=== PATIENT | female | born 1940 | race Caucasian/White ===

== ENCOUNTER → 2018-04-26 | Outpatient (CLI) | payer MEDICARE, OTHER ==
[~2018-04-26] MED LIST: REGADENOSON 0.4 MG/5 ML SYRINGE ONE
== END | disposition home or self-care (01) ==
LOC: CFH 08:07
PROVIDERS: ATTEND Internal Medicine Cardiovascular Disease
DX: I25.10 Atherosclerotic heart disease of native coronary artery without angina pectoris (principal); R06.02 Shortness of breath
CPT/HCPCS: 78452; 93017; A9502; J2785

== ENCOUNTER → 2018-08-02 | Outpatient (CLI) | payer MEDICAID, MEDICARE | END | disposition home or self-care (01) | LOC: CFH 14:08 | PROVIDERS: ATTEND Nurse Practitioner Family | DX: I08.1 Rheumatic disorders of both mitral and tricuspid valves (principal); I11.9 Hypertensive heart disease without heart failure; I25.10 Atherosclerotic heart disease of native coronary artery without angina pectoris; E11.9 Type 2 diabetes mellitus without complications; E78.5 Hyperlipidemia, unspecified; Z87.891 Personal history of nicotine dependence | CPT/HCPCS: 93306 ==

== ENCOUNTER 2019-04-24 15:38 | Emergency (ER) | payer MEDICARE ==
[~2019-04-24] VITALS: Ht 157.5 cm; Wt 105.0 kg
--- NOTE | 2019-04-24 15:46 | NUR ---
ATTEMPTED TO PLACE PATIENT ON O2 BUT PATIENT REFUSED
[2019-04-24] MEDS ORDERED: ONDANSETRON ODT 4 MG PO ONE (16:00)
[2019-04-24 16:34] LABS: ALBUMIN 3.5 g/dL (3.4-5.0); ANION GAP 5 mmol/L (5-15); CALCIUM 9.2 mg/dL (8.5-10.1); CHLORIDE 101 mmol/L (98-107)
[2019-04-24 16:35] LABS: CREATININE 1.59 mg/dL (0.55-1.02)
[2019-04-24 16:37] LABS: BASOPHILS # (AUTO) 0.04 x10^3/uL (0-0.1); BASOPHILS % (AUTO) 0 % (0-1); EOSINOPHILS # (AUTO) 0.24 x10^3/uL (0-0.4); EOSINOPHILS % (AUTO) 2 % (1-7); LYMPHOCYTES % (AUTO) 27 % (22-44); MD NO; MEAN CORPUSCULAR HGB CONC 31.4 g/dL (32.4-35.8); MEAN CORPUSCULAR VOLUME 95.5 fL (80-100); MEAN PLATELET VOLUME 7.8 fL (7.4-10.4); MONOCYTES # (AUTO) 0.91 x10^3/uL (0.2-0.8); MONOCYTES % (AUTO) 9 % (2-9); NEUTROPHILS # (AUTO) 6.48 x10^3/uL (1.8-6.8); NEUTROPHILS % (AUTO) 62 % (42-75); PLATELET COUNT 266 x10^3/uL (130-400); RED BLOOD COUNT 4.73 x10^6/uL (3.82-5.3); RED CELL DISTRIBUTION WIDTH 15.6 % (9.6-15.2)
--- NOTE | 2019-04-24 16:40 | NUR ---
PT ARRIVED TO ROOM 1 AMBULATORY. PT HAS NO PMD CURRENTLY, NEED PAIN MEDS RX FILLED, N/V, W[facility]. VSS, PT AAO X 4. REFUSING TO CHANGE INTO GOWN OR SIT ON GURNEY.
[2019-04-24] MEDS ORDERED: ONDANSETRON ODT 4 MG ONE (16:42)
[2019-04-24] MEDS ORDERED: HYDROcodone/APAP 10/325 MG TABLET ONE (16:42)
--- NOTE | 2019-04-24 16:53 | NUR ---
PT MEDICATED PER MAR.
--- NOTE | 2019-04-24 16:54 | NUR ---
PT REFUSING TO REVIEW MED REC.
[2019-04-24] MEDS ORDERED: HYDROcodone/APAP 10/325 MG TABLET PO ONE (17:00)
[2019-04-24 17:12] LABS: CULTURE INDICATED? NO; MICROSCOPIC NOT IND
--- NOTE | 2019-04-24 17:22 | NUR ---
PT RESTING, UP FOR RECHECK.
[2019-04-24 17:56] VITALS: BP 114/52
--- NOTE | 2019-04-24 18:13 | NUR ---
Patient/Caregiver given discharge instructions and they have confirmed that they understand the instructions. Patient ambulatory with steady gait.
== END 2019-04-24 18:15 | disposition home or self-care (01) ==
LOC: ED 18:08
DX: M54.9 Dorsalgia, unspecified (principal); Z00.01 Encounter for general adult medical examination with abnormal findings; Z76.0 Encounter for issue of repeat prescription; I10 Essential (primary) hypertension; E11.9 Type 2 diabetes mellitus without complications; Z87.891 Personal history of nicotine dependence
CPT/HCPCS: 36415; 71045; 80048; 81003; 82040; 85025; 93005; 99284; Q0162